=== PATIENT | female | born 1965 | race Caucasian/White ===

== ENCOUNTER 2018-10-04 00:37 | Emergency (ER) | payer BC, OTHER ==
[2018-10-04] MEDS ORDERED: LIDOCAINE 1% INJ 10MG/ML (20 ML MDV) SQ STA (01:12)
[2018-10-04] MEDS ORDERED: DIPH,PERTUS(ACELL)TETVAC-LF 0.5 ML VIAL IM ONE (01:12)
--- NOTE | 2018-10-04 02:56 | ED ---
General Adult HPI - General Source: patient, RN notes reviewed, old records reviewed Limitations: no limitations <Toan Galvan - Last Filed: 10/04/18 02:52> <Saturnino Reeves - Last Filed: 10/04/18 08:58> - General Chief complaint: Skin/Abscess/Foreign Body Stated complaint: [place] in nose - History of Present Illness Initial comments: 52-year-old female patient presents to ED with chief complaint of headache stuck in nose. Patient reports that she was fishing and one of the treble hooks flew up getting caught in her nose. Patient denies any complaints this time. Does not know date of last tetanus. Systemic: Pt denies fatigue, fever/chills, rash. Pt denies weakness, night sweats, weight loss. Neuro: Pt denies headache, visual disturbances, syncope or pre-syncope. HEENT: Pt denies ocular discharge or irritation, otalgia, rhinorrhea, pharyngitis or notable lymphadenopathy. Cardiopulmonary: Pt denies chest pain, SOB, heart palpitations, dyspnea on exertion. Abdominal/GI: Pt denies abdominal pain, n/v/d. : Pt denies dysuria, burning w/ urination, frequency/urgency. Denies new onset urinary or bowel incontinence. MSK: Pt denies myalgia, loss of strength or function in extremities. Neuro: Pt denies new onset weakness, paresthesias. (Toan Galvan) - Related Data Previous Rx's Medication Instructions Recorded Cephalexin [Keflex] 500 mg PO Q6HR 3 Days #12 cap 10/04/18 Allergies Allergy/AdvReac Type Severity Reaction Status Date / Time bupropion [From Wellbutrin] Allergy Rash/Hives Verified 10/04/18 00:47 citalopram [From Celexa] Allergy Rash/Hives Verified 10/04/18 00:47 escitalopram [From Lexapro] Allergy Rash/Hives Verified 10/04/18 00:47 Review of Systems ROS Other: All systems not noted in ROS Statement are negative. <Toan Galvan - Last Filed: 10/04/18 02:52> ROS Other: All systems not noted in ROS Statement are negative. <Saturnino Reeves - Last Filed: 10/04/18 08:58> ROS Statement: Those systems with pertinent positive or pertinent negative responses have been documented in the HPI. Past Medical History Past Medical History: No Reported History History of Any Multi-Drug Resistant Organisms: None Reported Additional Past Surgical History / Comment(s): varicose vein, fibroids, bladder suspension, Past Psychological History: Anxiety Smoking Status: Current every day smoker Past Alcohol Use History: Occasional Past Drug Use History: None Reported <Toan Galvan - Last Filed: 10/04/18 02:52> General Exam Limitations: no limitations <Toan Galvan - Last Filed: 10/04/18 02:52> - General Exam Comments Initial Comments: Constitutional: NAD, AOX3, Pt has pleasant affect. HEENT: NC/AT, trachea midline, neck supple, no lymphadenopathy. Posterior pharynx non erythematous, without exudates. External ears appear normal, without discharge. Mucous membranes moist. Eyes PERRLA, EOM intact. There is no scleral icterus. No pallor noted. Cardiopulmonary: RRR, no murmurs, rubs or gallops, no JVD noted. Lungs CTAB in anterior and posterior dao. No peripheral edema. Abdominal exam: Abdomen soft and non-distended. Abdomen non-tender to palpation in all 4 quadrants. Bowel sounds active in LLQ. No hepatosplenomegaly. No ecchymosis Neuro: CN II-XII grossly intact. No nuchal rigidity. No raccon eyes, no griffiths sign, no hemotympanum. No cervical spinal tenderness. MSK: Treble hook caught in anterior aspect of nose. Hook was advanced, Minda was cut, hook was then removed. Performed with Dr. Chin. No posterior calf tenderness bilaterally, homans sign negative bilaterally. Posterior tibialis and radial pulse +2 bilaterally. Sensation intact in upper and lower extremities. Full active ROM in upper and lower extremities, 5/5 stregnth. (Toan Galvan) Course Vital Signs 10/04/18 10/04/18 00:41 03:00 Temperature 97.2 F L 97.9 F Pulse Rate 61 59 L Respiratory 18 15 Rate Blood Pressure 113/68 112/67 O2 Sat by Pulse 98 97 Oximetry Medical Decision Making <Toan Galvan - Last Filed: 10/04/18 02:52> <Saturnino Reeves - Last Filed: 10/04/18 08:58> - Medical Decision Making 52-year-old female patient presents to ED with chief complaint of headache stuck in nose. Patient reports that she was fishing and one of the treble hooks flew up getting caught in her nose. Patient denies any complaints this time. Does not know date of last tetanus. Pt VSS, afebrile. Physical exam displayed: Treble hook caught in anterior aspect of nose. Hook Was advanced, Minda was cut, hook was then removed. Area was cleaned. Performed with Dr. Chin. Patient tetanus updated. Patient was discharged with 3 days of prophylactic Keflex. Will monitor for signs of infection. Case discussed and pt seen with Dr. Chin. (Toan Galvan) I saw this patient in conjunction with the physician physicians assistant. I performed independent history and physical exam. Agree with case management. (Saturnino Reeves) Disposition Is patient prescribed a controlled substance at d/c from ED?: No <Toan Galvan - Last Filed: 10/04/18 02:52> <Saturnino Reeves - Last Filed: 10/04/18 08:58> Clinical Impression: Fishing hook foreign body Disposition: HOME SELF-CARE Condition: Stable Instructions (If sedation given, give patient instructions): Soft Tissue Foreign Body (ED) Additional Instructions: Patient to adhere to previously discussed treatment plan and will take medication(s) as directed. Patient to follow up with PCP in 1-2 days. Patient to return to ED if symptoms do not improve. Please monitor for signs and symptoms of infection including: redness, warmth, drainage, discharge. Please return to ED if these signs or symptoms occur, new signs or symptoms develop or if condition worsens in anyway. Prescriptions: Cephalexin [Keflex] 500 mg PO Q6HR 3 Days #12 cap Referrals: Orlando Oh DO [Primary Care Provider] - 1-2 days
[2018-10-04 03:06] VITALS: BP 112/67; PULSE 59; RESP 15; TEMP 97.9
--- NOTE | 2018-10-06 02:59 | CDI ---
Documentation Clarification OP Dear Toan VELIZ, PAC Please provide nose foreign body removal complete note. Thank you, Rosales Mitchell Tv Technician If you have any questions, please contact Laundry Pricing Clerk at [phone] [facility]
== END 2018-10-04 03:00 | disposition home or self-care (01) ==
LOC: EC 00:37
DX: T17.1XXA Foreign body in nostril, initial encounter (principal); F17.200 Nicotine dependence, unspecified, uncomplicated; Z23 Encounter for immunization; Z88.8 Allergy status to other drugs, medicaments and biological substances; Y93.89 Activity, other specified
CPT/HCPCS: 99283; 90471; 90715; J2001

== ENCOUNTER → 2019-10-14 | Outpatient (CLI) | payer BC ==
--- NOTE | 2019-10-14 12:48 | XR ---
2 view abdomen HISTORY: Lower abdominal pain 2 views the abdomen submitted. Lung bases are clear. There is no evident bowel obstruction or pneumoperitoneum. IUD is present withi n the pelvis. There is a slight spinal curvature. Retained fecal debris is present within the transve rse colon, ascending and descending colon. Bone mineralization is normal. No pathologic calcification evident. IMPRESSION: Nonspecific findings. Correlate for possible fecal stasis.
== END | disposition home or self-care (01) ==
LOC: RADXRYALE 11:29
PROVIDERS: ATTEND Physician Assistant Medical
DX: R10.30 Lower abdominal pain, unspecified (principal)
CPT/HCPCS: 74019

== ENCOUNTER 2021-11-22 00:29 | Emergency (ER) | payer OTHER, BC ==
[2021-11-22] MEDS ORDERED: SODIUM CHLORIDE 0.9% 1,000 ML IV STA (00:53)
[2021-11-22] MEDS ORDERED: LIDOCAINE 1% INJ 10MG/ML (20 ML MDV) SQ STA (00:57)
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
--- NOTE | 2021-11-22 02:02 | XR ---
EXAMINATION TYPE: XR foot complete bilateral DATE OF EXAM: 11/22/2021 COMPARISON: NONE HISTORY: Trauma TECHNIQUE: 3 views each foot FINDINGS: The metatarsals are intact. There is mild plantar calcaneal spurring. The toes are intact. I see no fracture nor dislocation. There are no erosions. IMPRESSION: Negative bilateral foot exam. No fracture.
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
[2021-11-22 02:05] VITALS: TEMP 98
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
--- NOTE | 2021-11-22 02:07 | CT ---
EXAMINATION TYPE: CT brain cspine wo con DATE OF EXAM: 11/22/2021 COMPARISON: None HISTORY: TRAUMA CT DLP: 1403.5 mGycm Automated exposure control for dose reduction was used. Images of the brain and cervical spine obtained with no contrast. Ventricles have normal size. There is no mass effect or midline shift. No sign of intracranial hemorr maria m. Calvarium is intact. No evidence of cerebral edema. Sella turcica appears normal. There is norm al aeration of the mastoid sinuses. The cervical vertebra have normal spacing and alignment. Posterior elements are intact. There is mauro r spurring at C5-6 endplates. Facet joints are intact. Prevertebral soft tissues are intact. Occipita l bone appears normal. IMPRESSION: Negative CT scan of the brain. Negative CT scan cervical spine.
[2021-11-22 02:46] LABS: Basophils % (A) 0 %; Eosinophils # (A) 0.3 k/uL (0-0.7); Eosinophils % (A) 5 %; HCT 37.2 % (34.0-46.0); HGB 12.5 gm/dL (11.4-16.0); Lymphocytes # (A) 1.7 k/uL (1.0-4.8); Lymphocytes % (A) 28 %; MCH 31.7 pg (25.0-35.0); MCHC 33.6 g/dL (31.0-37.0); MCV 94.4 fL (80.0-100.0); Mean Platelet Volume 8.6; Monocytes # (A) 0.5 k/uL (0-1.0); Monocytes % (A) 8 %; Neutrophils # (A) 3.3 k/uL (1.3-7.7); Neutrophils % (A) 56 %; Platelet Count 184 k/uL (150-450); RBC 3.94 m/uL (3.80-5.40); RDW 13.5 % (11.5-15.5); WBC 5.9 k/uL (3.8-10.6)
[2021-11-22 03:04] LABS: Albumin 3.5 g/dL (3.5-5.0); Calcium 8.3 mg/dL (8.4-10.2); Potassium 3.6 mmol/L (3.5-5.1); Total Bilirubin 0.2 mg/dL (0.2-1.3); Total Protein 5.8 g/dL (6.3-8.2)
[2021-11-22] MEDS ORDERED: ACETAMINOPHEN TAB 500 MG TAB PO STA (03:04)
[2021-11-22] MEDS ORDERED: TOPICAL SKIN ADHESIVE 1 EACH AMP TOPICAL ONE (03:04)
[2021-11-22] MEDS ORDERED: SODIUM CHLORIDE 0.9% 1,000 ML IV ONE (03:18)
[2021-11-22 03:32] LABS: Appearance,Urine Clear (Clear); Bilirubin,Urine Negative (Negative); Blood,Urine Negative (Negative); Color,Urine Yellow; Glucose,Urine (UA) Negative (Negative); Ketones,Urine 1+ (Negative); Leukocyte Esterase,Urine Negative (Negative); Nitrite,Urine Negative (Negative); PH, Urine 5.5 (5.0-8.0); Protein,Urine Negative (Negative); Specific Gravity,Urine 1.014 (1.001-1.035); Urobilinogen,Urine <2.0 mg/dL (<2.0)
[2021-11-22 03:51] LABS: Glucose,Whole Blood 116 mg/dL (70-110)
[2021-11-22] MEDS ORDERED: ONDANSETRON 4 MG/2 ML VIAL IVP STA (04:10)
[2021-11-22] MEDS ORDERED: ONDANSETRON 4 MG ODT STARTER PACK 2 TAB BTL PO STA (04:11)
[2021-11-22 05:30] VITALS: BP 106/62; PULSE 76; RESP 20
== END 2021-11-22 05:10 | disposition home or self-care (01) ==
LOC: EC 00:29
DX: S00.03XA Contusion of scalp, initial encounter (principal); S06.0X0A Concussion without loss of consciousness, initial encounter; S80.819A Abrasion, unspecified lower leg, initial encounter; F41.9 Anxiety disorder, unspecified; Z88.8 Allergy status to other drugs, medicaments and biological substances; Z88.1 Allergy status to other antibiotic agents; W24.1XXA Contact with transmission devices, not elsewhere classified, initial encounter; Y92.69 Other specified industrial and construction area as the place of occurrence of the external cause
CPT/HCPCS: 36415; 93005; 80053; 85025; 81003; 73630; 72170; 73590; 71045; 72125; 70450; 99285; 96374; L0120; J2405; S0119

== ENCOUNTER → 2021-12-03 | Outpatient (CLI) | payer OTHER ==
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
== END | disposition home or self-care (01) ==
LOC: RADMRIMAIN 18:24
PROVIDERS: ATTEND Emergency Medicine
DX: S01.80XD Unspecified open wound of other part of head, subsequent encounter (principal); S13.4XXD Sprain of ligaments of cervical spine, subsequent encounter; S80.10XD Contusion of unspecified lower leg, subsequent encounter; S90.30XD Contusion of unspecified foot, subsequent encounter; F07.81 Postconcussional syndrome; X58.XXXD Exposure to other specified factors, subsequent encounter
CPT/HCPCS: 70551